=== PATIENT | male | born 1955 | race Caucasian/White ===

== ENCOUNTER → 2023-07-07 06:46 | Outpatient (REF) | payer BC, SELFPAY ==
[2023-07-07 08:09] LABS: Urine Albumin Negative (Neg - Trace); Urine Bilirubin Negative (Negative); Urine Character Clear (Clear); Urine Color Yellow; Urine Glucose Negative (Negative); Urine Ketone Negative (Negative); Urine Leukocyte 1+ (Negative); Urine Nitrite Negative (Negative); Urine Occult Blood 2+ (Negative); Urine Urobilinogen Negative (Neg - 1+)
[2023-07-07 08:17] LABS: % Basophils 0.9 % (0-2); % Eosinophils 10.4 % (0-6); % Immature Granulocytes 0.2 % (0-0.5); % Lymphocytes 34.6 % (20.5-51.1); % Monocytes 11.3 % (1.7-9.3); % Neutrophils 42.6 % (42.2-75.2); Absolute Basophils 0.1 10^3/uL (0-0.2); Absolute Eosinophils 0.9 10^3/uL (0-0.7); Absolute Lymphocytes 2.8 10^3/uL (1.2-3.4); Absolute Monocytes 0.9 10^3/uL (0.1-0.6); Absolute Neutrophils 3.5 10^3/uL (1.4-6.5); Hemoglobin 15.6 g/dL (13.0-18.0); Mean Corp Hgb Conc. 35.5 g/dL (33.0-37.0); Mean Corpuscular Hgb 31.2 pg (27.0-31.0); Mean Platelet Volume 12.6 fL (7.4-10.4); Nucleated Red Blood Cells % 0 % (-); Platelet Count 227 10^3/uL (130-400); White Blood Cell Count 8.2 10^3/uL (4.8-10.8)
[2023-07-07 08:23] LABS: Urine Squamous Cell 0-2 /LPF (Few)
[2023-07-07 08:24] LABS: Urine Bacteria Few (Negative); Urine Red Blood Cell 16-20 /HPF (0-2)
[2023-07-07 09:11] LABS: Glycohemoglobin (HgbA1c) 5.8 % (4.0-5.6)
[2023-07-07 09:15] LABS: ALT (SGPT) 43 U/L (0-50); AST (SGOT) 37 U/L (17-59); Albumin 4.5 g/dl (3.5-5.0); Alkaline Phosphatase 68 U/L (38-126); Blood Urea Nitrogen 27 mg/dl (9-20); Calcium 10.4 mg/dl (8.4-10.2); Carbon Dioxide 25 mmol/L (22-30); Chloride 103 mmol/L (98-107); Glucose 96 mg/dl (70-99); HDL Cholesterol 48 mg/dl; LDL Cholesterol, Calculated 103 mg/dl; Potassium 4.1 mmol/L (3.5-5.1); Sodium 138 mmol/L (135-145); Total Bilirubin 1.1 mg/dl (0.2-1.3); Total Cholesterol 179 mg/dl (50-199); Total Protein 7.2 g/dl (6.3-8.2); Triglyceride 140 mg/dl (10-149); Very Low Density Lipoprotein 28 mg/dl (0-30); eGFR > 60.00
[2023-07-07 09:36] LABS: PSA, Total - Screen 2.83 ng/ml (0.0-4.0)
== END ==
LOC: REG 06:46
PROVIDERS: ATTENDING PHYSICIAN Family Medicine
DX: E78.5 Hyperlipidemia, unspecified (principal); R73.03 Prediabetes; K57.90 Diverticulosis of intestine, part unspecified, without perforation or abscess without bleeding; I10 Essential (primary) hypertension; Z12.5 Encounter for screening for malignant neoplasm of prostate
CPT/HCPCS: 36415; 80053; 80061; 81003; 81015; 83036; 85025; G0103

== ENCOUNTER → 2023-09-01 09:37 | Outpatient (REF) | payer BC, SELFPAY | LOC: RAD 09:37 | PROVIDERS: ATTENDING PHYSICIAN Family Medicine | DX: R31.29 Other microscopic hematuria (principal) | CPT/HCPCS: 76770 ==

== ENCOUNTER → 2023-09-27 07:59 | Outpatient (REF) | payer BC, SELFPAY | LOC: RAD 07:59 | PROVIDERS: ATTENDING PHYSICIAN Urology; FAMILY PHYSICIAN Family Medicine | DX: R31.0 Gross hematuria (principal) | CPT/HCPCS: 74178; Q9967 ==

== ENCOUNTER → 2023-12-18 07:07 | Outpatient (REF) | payer BC, SELFPAY ==
[2023-12-18 09:27] LABS: PSA, Total - Diagnostic 2.69 ng/ml (0.0-4.0)
== END ==
LOC: REG 07:07
PROVIDERS: ATTENDING PHYSICIAN Family Medicine
DX: R97.20 Elevated prostate specific antigen [PSA] (principal)
CPT/HCPCS: 36415; 84153

== ENCOUNTER → 2024-07-26 07:10 | Outpatient (REF) | payer BC, SELFPAY ==
[2024-07-26 08:02] LABS: % Eosinophils 5.4 % (0-6); % Immature Granulocytes 0.1 % (0-0.5); % Lymphocytes 28.3 % (20.5-51.1); % Monocytes 11.4 % (1.7-9.3); % Neutrophils 53.8 % (42.2-75.2); Absolute Basophils 0.1 10^3/uL (0-0.2); Absolute Eosinophils 0.5 10^3/uL (0-0.7); Absolute Lymphocytes 2.4 10^3/uL (1.2-3.4); Absolute Neutrophils 4.5 10^3/uL (1.4-6.5); Hematocrit 43.1 % (39.0-52.0); Hemoglobin 15.4 g/dL (13.0-18.0); Mean Corp Hgb Conc. 35.7 g/dL (33.0-37.0); Mean Corpuscular Hgb 31.5 pg (27.0-31.0); Mean Corpuscular Volume 88.1 fL (80.0-94.0); Mean Platelet Volume 12.4 fL (7.4-10.4); Nucleated Red Blood Cells % 0 % (-); Platelet Count 224 10^3/uL (130-400); Red Blood Cell Count 4.89 10^6/uL (4.70-6.10); White Blood Cell Count 8.4 10^3/uL (4.8-10.8)
[2024-07-26 08:38] LABS: ALT (SGPT) 35 U/L (0-50); AST (SGOT) 28 U/L (17-59); Albumin 4.5 g/dl (3.5-5.0); Alkaline Phosphatase 62 U/L (38-126); Blood Urea Nitrogen 22 mg/dl (9-20); Calcium 10.2 mg/dl (8.4-10.2); Carbon Dioxide 29 mmol/L (22-30); Chloride 107 mmol/L (98-107); Glucose 102 mg/dl (70-99); HDL Cholesterol 37 mg/dl; LDL Cholesterol, Calculated 90 mg/dl; Potassium 4.2 mmol/L (3.5-5.1); Sodium 141 mmol/L (135-145); Total Bilirubin 1.2 mg/dl (0.2-1.3); Total Cholesterol 164 mg/dl (50-199); Total Protein 7.2 g/dl (6.3-8.2); Triglyceride 186 mg/dl (10-149); Very Low Density Lipoprotein 37 mg/dl (0-30); eGFR > 60.00
[2024-07-26 09:03] LABS: PSA, Total - Screen 1.91 ng/ml (0.0-4.0)
== END ==
LOC: REG 07:10
PROVIDERS: ATTENDING PHYSICIAN Family Medicine
DX: M15.9 Polyosteoarthritis, unspecified (principal); I10 Essential (primary) hypertension; E78.5 Hyperlipidemia, unspecified; Z96.653 Presence of artificial knee joint, bilateral; N52.9 Male erectile dysfunction, unspecified; R73.03 Prediabetes
CPT/HCPCS: 36415; 80053; 80061; 85025; G0103